=== PATIENT | female | born 1960 | race African-American/Black ===

== ENCOUNTER 2022-12-24 12:42 | Emergency (ER) | payer MEDICAID ==
[~2022-12-24] VITALS: Ht 167.6 cm; Wt 70.0 kg
[2022-12-24 12:44] VITALS: BP 172/104; PULSE 120; RESP 18; TEMP 98.5; O2SAT 99
== END 2022-12-24 14:18 | disposition left against medical advice (07) ==
LOC: ER 13:46
DX: R07.89 Other chest pain (principal); I10 Essential (primary) hypertension; E11.9 Type 2 diabetes mellitus without complications
CPT/HCPCS: 99283